=== PATIENT | female | born 1970 | race American Indian/Alaskan Native ===

== ENCOUNTER 2016-11-21 18:10 | Emergency (ER) | payer MEDICAID ==
[~2016-11-21] VITALS: Ht 177.8 cm; Wt 85.8 kg
[2016-11-21] MEDS ORDERED: AMPICILLIN/SULBACTAM 3 GM in SODIUM CHLORIDE 0.9% 100 ML IVPB ONE (18:30)
[2016-11-21] MEDS ORDERED: SODIUM CHLORIDE 0.9% 1,000ML IVBOLUS ONE (18:30)
[2016-11-21] MEDS ORDERED: SODIUM CHLORIDE FLUSH 10ML SYR IVF ONE (18:30)
[2016-11-21 18:55] LABS: BLOOD UREA NITROGEN 9 mg/dL (7-18)
[2016-11-21] MEDS ORDERED: CLINDAMYCIN PMX 900MG/50ML 50 ML IV ONE (19:00)
[2016-11-21] MEDS ORDERED: CLINDAMYCIN PMX 900MG/50ML 50 ML ONE (19:15)
[2016-11-21] MEDS ORDERED: CLINDAMYCIN 150 MG CAPSULE PO ONE (19:30)
[2016-11-21 20:00] VITALS: BP 112/75
== END 2016-11-21 20:24 | disposition home or self-care (01) ==
LOC: ED 19:10
DX: L03.116 Cellulitis of left lower limb (principal); I50.9 Heart failure, unspecified
CPT/HCPCS: 36415; 80048; 82040; 85025; 96365; 99284; J7030